=== PATIENT | male | born 1990 | race African-American/Black ===

== ENCOUNTER 2018-07-27 15:31 | Emergency (ER) | payer SELFPAY ==
[~2018-07-27] VITALS: Ht 167.6 cm; Wt 72.7 kg
[2018-07-27 15:33] VITALS: BP 137/76; PULSE 71
[2018-07-27] MEDS ORDERED: DOXYCYCLINE HY100 MG PO (16:24)
[2018-07-27] MEDS ORDERED: NORCO 325 MG-51 TAB PO (16:24)
[2018-07-27] MEDS ORDERED: CEPHALEXIN500 M1 PO (16:24)
[2018-07-27 16:40] VITALS: TEMP 98.5
== END 2018-07-27 16:40 | disposition home or self-care (01) ==
LOC: COL.ER 15:31
DX: L02.31 Cutaneous abscess of buttock (principal); F17.210 Nicotine dependence, cigarettes, uncomplicated; F12.90 Cannabis use, unspecified, uncomplicated

== ENCOUNTER 2019-04-29 20:06 | Emergency (ER) | payer OTHER ==
[~2019-04-29] VITALS: Ht 167.6 cm; Wt 75.0 kg
[~2019-04-29 20:06] MED LIST: CEPHALEXIN500 M1 PO; DOXYCYCLINE HY100 MG PO; NORCO 325 MG-51 TAB PO
[2019-04-29 20:07] VITALS: TEMP 96.8
[2019-04-29] MEDS ORDERED: CRUTCHES MC (21:28)
[2019-04-29 21:45] VITALS: BP 122/84; PULSE 87
== END 2019-04-29 21:45 | disposition home or self-care (01) ==
LOC: COL.ER 20:06
DX: S33.9XXA Sprain of unspecified parts of lumbar spine and pelvis, initial encounter (principal); M25.571 Pain in right ankle and joints of right foot; R40.2412 Glasgow coma scale score 13-15, at arrival to emergency department; F17.210 Nicotine dependence, cigarettes, uncomplicated; Y30.XXXA Falling, jumping or pushed from a high place, undetermined intent, initial encounter
CPT/HCPCS: Q4045